=== PATIENT | male | born 1960 ===

== ENCOUNTER 2020-08-23 22:46 | Emergency (ER) | payer SELFPAY ==
[2020-08-23 23:16] LABS: #Basophils 0.1 thou/uL (0.0-0.2); #Eosinphils 0.1 thou/uL (0.0-0.7); #Lymphocytes 1.7 thou/uL (1.20-3.40); #Monocytes 0.9 thou/uL (0.11-0.59); #Neutrophils 6.7 thou/uL (1.40-6.50); %Basophils 0.6 % (0.0-1.0); %Eosinophils 1.2 % (0.0-10.0); %Lymphocytes 17.5 % (21.0-51.0); %Monocytes 9.8 % (0.0-10.0); %Neutrophils 70.9 % (42.0-75.0); Hemoglobin 12.4 g/dL (14.0-18.0); Mean Corpuscular HGB CONC 31.9 g/dL (32.0-36.0); Mean Corpuscular Hemoglobin 31.2 pg (27.0-31.0); Mean Corpuscular Volume 97.9 fL (78.0-98.0); Mean Platelet Volume 8.9 fL (7.4-10.4); Platelet Count 182 thou/uL (130-400); RBC Distribution Width 12.4 % (11.5-14.5); Red Blood Cell (RBC) Count 3.98 mill/uL (4.70-6.10); White Blood Cell (WBC) Count 9.5 thou/uL (4.8-10.8)
[2020-08-23 23:35] LABS: ALT (SGPT) 14 U/L (8-55); AST (SGOT) 17 U/L (5-34); Albumin 3.9 g/dL (3.5-5.0); Alkaline Phosphatase 71 U/L (40-110); Anion Gap 15 mmol/L (10-20); BUN (Urea Nitrogen) 15 mg/dL (8.4-25.7); Bilirubin, Total 0.7 mg/dL (0.2-1.2); Calc. Creatinine Clearance 0 mL/min (70-130); Calcium 8.6 mg/dL (7.8-10.44); Carbon Dioxide 27 mmol/L (22-29); Chloride 97 mmol/L (98-107); Estimated GFR-MDRD 66; Globulin 2.5 g/dL (2.4-3.5); Glucose 136 mg/dL (70-105); Potassium 3.8 mmol/L (3.5-5.1); Protein, Total 6.4 g/dL (6.0-8.3); Sodium 135 mmol/L (136-145)
[2020-08-23 23:36] LABS: Acetaminophen Less than 6.0 mcg/mL (10.0-30.0); Alcohol Less than 10 mg/dL (Less than 10); Salicylate Less than 8.0 mg/dL (15.0-30.0)
[2020-08-24 00:30] LABS: Amphetamine Not Detected (NotDetected); Barbiturates Screen Not Detected (NotDetected); Benzodiazepine Screen Not Detected (NotDetected); Cocaine Metabolite Screen Not Detected (NotDetected); Medtox Control Line Valid? VALID (VALID); Methadone Not Detected (NotDetected); Methamphetamine Not Detected (NotDetected); Opiate Screen Detected (NotDetected); Oxycodone Screen Not Detected (NotDetected); Phencyclidine (PCP) Not Detected (NotDetected); THC/Cannabinoid Screen Detected (NotDetected); Tricyclic Screen Not Detected (NotDetected)
--- NOTE | 2020-08-24 11:48 | RAD ---
PORTABLE CHEST: Date: 08/23/2020 An AP portable film at 2313 is presented with no prior films available for comparison. The heart is normal in size and the lungs are clear. No acute infiltrate or effusion seen. At most, t here is some minor prominence of some of the interstitial markings which does not appear acute. In pa rt, this may be related to exposure factors. There is no vascular congestion or edema. The mediastinu m appears normal. IMPRESSION: No acute thoracic finding. POS: HOME
--- NOTE | 2020-08-24 11:54 | CT ---
PRELIMINARY REPORT/[facility]/EMERGENCY AFTER HOURS PROCEDURE: EXAM: CT Head Without Intravenous Contrast. CLINICAL HISTORY: AMS COMPARISON: None provided. FINDINGS: BRAIN: No acute intracranial hemorrhage, mass-effect, or midline shift. No CT evidence of acute infarct in a large vascular territory. Nonspecific white matter hypoattenuation suggesting chronic age-related small vessel changes. Atherosclerotic calcifications at the skull base. VENTRICLES: No hydrocephalus. SINUSES AND MASTOIDS: Trace thickening/fluid in the mastoid air cells. Small right maxillary and frontal sinus mucous reten tion cysts. Partially imaged polypoid appearance of the left-sided nasal mucosa. IMPRESSION: No acute intracranial abnormality. ELECTRONICALLY SIGNED BY: Alan De La Cruz MD Aug 23, 2020 11:20:05 PM CDT This report is intended for review by the ordering physician only, in accordance of law. If you recei ve this report in error, please call [facility] at [phone]. FINAL REPORT CT OF THE BRAIN WITHOUT CONTRAST: Date: 08/23/[address] was performed for evaluation of mental status changes. The ventricles are normal in size with no shift. No intracranial bleeding, mass, or sign of acute str brian was found. There is no edema. The navarrete-white distinction is good. There may be a few areas in the deep white matter that are slightly hypolucent such as might be seen in early chronic ischemic wood e, but this is borderline. There were certainly no findings to explain mental status changes. The patient does have significant sinonasal disease. There are areas of prominent mucosal thickening in the ethmoid sinuses bilaterally and to a lesser extent the central portion of the frontal sinus. T here are polypoid-looking soft tissue densities in the visible portions of the maxillary sinuses, steph ecially the left. These could be true polyps or several mucus retention cysts. Additionally, what I p resume is the left inferior nasal turbinate, is quite swollen and occupies nearly all of the nasal pa ssage. IMPRESSION: 1. No acute intracranial findings. 2. Significant sinonasal disease. I would suggest that if it is possible, elective follow-up with an ENT physician is recommended. Findings in agreement with preliminary report by [facility]. POS: HOME
== END 2020-08-24 06:46 | disposition home or self-care (01) ==
LOC: BURERS 22:46
DX: F19.10 Other psychoactive substance abuse, uncomplicated (principal)
CPT/HCPCS: 70450; 71045; 80053; 80306; 80307; 84484; 85025; 93005